=== PATIENT | male | born 1955 | race Caucasian/White ===

== ENCOUNTER 2025-07-19 19:36 | Emergency (ER) | payer MEDICARE, OTHER ==
[~2025-07-19] VITALS: Ht 175.3 cm; Wt 68.2 kg
[2025-07-19] MEDS ORDERED: VENTAER INH (19:51)
[2025-07-19] MEDS ORDERED: ADVA1AER9 INH (19:51)
[2025-07-19 20:17] LABS: BASO # 0.1 10^3/uL (0.0-0.2); BASO % 0.5 % (0.0-1.0); EOS # 0.6 10^3/uL (0.0-0.5); EOS % 6.4 % (0.0-3.0); LYMPH # 3.6 10^3/uL (1.5-5.0); LYMPH % 37.7 % (24.0-44.0); MONO # 1.1 10^3/uL (0.0-0.8); MONO % 11.4 % (2.0-8.0); NEUTROPHILS # 4.1 10^3/uL (1.5-8.5); NEUTROPHILS % 43.7 % (36.0-66.0); PLATELET COUNT, AUTOMATED 303 10^3/uL (150-450)
[2025-07-19 20:51] LABS: ALT/SGPT 19.0 U/L (7.0-40); AST/SGOT 18.0 U/L (<34); CALCIUM LEVEL 9.6 MG/DL (8.3-10.6); CARBON DIOXIDE LEVEL 32.0 MMOL/L (20-31); CHLORIDE LEVEL 105.0 MMOL/L (98-107); CREATININE FOR GFR 0.98 MG/DL (0.70-1.30); GLOMERULAR FILTRATION RATE 81.9 (>42); POTASSIUM SERUM 4.5 MMOL/L (3.5-5.1); SODIUM LEVEL 142.0 MMOL/L (136-145)
[2025-07-20] MEDS: predniSONE 20 MG TAB PO ONE (00:23)
[2025-07-20] MEDS: IPRATROPIUM 0.5 MG/ALBUTEROL 2.5 MG INH SOL UD 3 ML NEB ONE (00:34)
[2025-07-20] MEDS ORDERED: VENTAER INH (01:11)
[2025-07-20] MEDS ORDERED: ADVA1AER9 INH (01:11)
[2025-07-20 01:16] VITALS: BP 158/81; TEMP 96.5; O2SAT 97
== END 2025-07-20 01:28 | disposition home or self-care (01) ==
LOC: M ED 19:36
DX: J44.1 Chronic obstructive pulmonary disease with (acute) exacerbation (principal); J45.909 Unspecified asthma, uncomplicated; Z79.01 Long term (current) use of anticoagulants; Z88.0 Allergy status to penicillin; Z79.52 Long term (current) use of systemic steroids; Z79.899 Other long term (current) drug therapy
CPT/HCPCS: 36415; 71045; 80048; 80076; 85025; 87486; 87581; 87633; 87798; 93005; 94640; 94760; 99284; J7512